=== PATIENT | male | born 1945 | race Caucasian/White ===

== ENCOUNTER 2016-11-18 11:21 | Inpatient (IN) | payer MEDICARE, OTHER ==
[~2016-11-18] VITALS: Ht 175.3 cm; Wt 93.6 kg
[2016-11-18 12:59] LABS: HEMOGLOBIN 15.5 gm/dl (14.0-17.5); RED BLOOD COUNT 5.36 M/UL (4.20-5.50); WHITE BLOOD COUNT 8.7 K/UL (4.5-11.0)
[2016-11-18] MEDS ORDERED: NORVASC 5 MG TAB5 MG PO (21:50)
[2016-11-18] MEDS ORDERED: AMARYL 2MG TABLE2 MG PO (21:51)
[2016-11-18] MEDS ORDERED: ASPIRIN81 MG PO (21:51)
[2016-11-18] MEDS ORDERED: LISINOPRIL-HCT1 EACH PO (21:51)
[2016-11-19 03:32] LABS: HEMOGLOBIN 14.4 gm/dl (14.0-17.5); RED BLOOD COUNT 4.97 M/UL (4.20-5.50)
[2016-11-20 06:47] LABS: HEMOGLOBIN 14.8 gm/dl (14.0-17.5); RED BLOOD COUNT 5.13 M/UL (4.20-5.50)
[2016-11-20 07:22] LABS: WHITE BLOOD COUNT 27.4 K/UL (4.5-11.0)
[2016-11-21 06:46] LABS: BUN/CREATININE RATIO 28 (0-10)
[2016-11-21 07:04] LABS: HEMOGLOBIN 12.7 gm/dl (14.0-17.5); RED BLOOD COUNT 4.36 M/UL (4.20-5.50); WHITE BLOOD COUNT 18.2 K/UL (4.5-11.0)
[2016-11-21] MEDS ORDERED: LISINOPRIL20 MG PO (14:26)
== END 2016-11-21 14:55 | disposition home or self-care (01) | DRG 189 ==
LOC: ER1 11:21 → ZEROF 17:00 → M/S 21:22
PROVIDERS: Emergency Medicine; ADMIT Family Medicine
DX: J96.21 Acute and chronic respiratory failure with hypoxia (principal); J84.9 Interstitial pulmonary disease, unspecified; E87.1 Hypo-osmolality and hyponatremia; J44.0 Chronic obstructive pulmonary disease with (acute) lower respiratory infection; R91.8 Other nonspecific abnormal finding of lung field; R59.0 Localized enlarged lymph nodes; E11.9 Type 2 diabetes mellitus without complications; Z79.84 Long term (current) use of oral hypoglycemic drugs; I10 Essential (primary) hypertension; Z90.2 Acquired absence of lung [part of]; Z79.82 Long term (current) use of aspirin; J20.9 Acute bronchitis, unspecified
CPT/HCPCS: 36415; 36600; 71010; 71250; 80053; 82164; 82550; 82553; 82803; 82947; 82962; 83516; 83880; 84484; 85025; 85027; 85379; 86039; 86140; 86431; 87040; 93005; 94640; 94664; 96361; 96365; 96366; 99285; G0378; J1650; J1956; J2270; J2930; J7030; J7050; Q9963

== ENCOUNTER → 2016-12-17 | Outpatient (CLI) | payer MEDICARE, OTHER ==
[~2016-12-17] MED LIST: AMARYL 2MG TABLE2 MG PO; ASPIRIN81 MG PO; LISINOPRIL-HCT1 EACH PO; LISINOPRIL20 MG PO; NORVASC 5 MG TAB5 MG PO
== END ==
LOC: HEART 5 09:56
DX: R06.02 Shortness of breath (principal)
CPT/HCPCS: 94010; 94729

== ENCOUNTER → 2017-01-26 | Outpatient (CLI) | payer MEDICARE, OTHER ==
[2017-01-26 16:48] LABS: HEMOGLOBIN 15.6 gm/dl (14.0-17.5); RED BLOOD COUNT 5.49 M/UL (4.20-5.50); WHITE BLOOD COUNT 9.2 K/UL (4.5-11.0)
== END ==
LOC: LAB 16:16
PROVIDERS: Nurse Practitioner Family
DX: J84.112 Idiopathic pulmonary fibrosis (principal)
CPT/HCPCS: 36415; 80053; 85025